=== PATIENT | female | born 1950 | race Caucasian/White ===

== ENCOUNTER → 2020-05-28 | Outpatient (CLI) | payer MEDICARE | LOC: GMAM 16:51 | PROVIDERS: ATTEND Family Medicine | DX: Z13.29 Encounter for screening for other suspected endocrine disorder (principal) ==

== ENCOUNTER → 2020-05-30 | Outpatient (CLI) | payer MEDICARE | LOC: GMAM 14:12 | PROVIDERS: ATTEND Family Medicine | DX: E83.52 Hypercalcemia (principal); E03.9 Hypothyroidism, unspecified ==

== ENCOUNTER → 2020-06-28 | Outpatient (CLI) | payer MEDICARE, OTHER ==
--- NOTE | 2020-06-28 16:34 | US ---
US HEAD NECK SOFT TISSUE CLINICAL STATEMENT:69 years Female thyroid/parathyroid/oaritid-nontoxic single thyroid nodule. COMPARISON: None TECHNIQUE: Transcutaneous scanning, grayscale and Doppler modes. FINDINGS: Size right thyroid lobe: 3.8 x 1.4 x 1.3 cm Size left thyroid lobe: 4.0 x 1.5 x 1.1 cm Size isthmus: 0.25 cm Estimated total number of nodules greater than or equal to 1 cm: 2. Nodule 1: Size: 1.0 x 1.0 x 0.8 cm Location: Right Lower Composition: solid or almost completely solid: 2 points Echogenicity: hypoechoic: 2 points Shape: wider than tall: 0 points Margins: ill-defined: 0 points Echogenic foci: None. ACR Total Points: 4; ACR TI-RADS risk category: TR4 - moderately suspicious nodule. Nodule 2: Size: 1.2 x 1.0 x 0.8 cm Location: Left Lower Composition: solid or almost completely solid: 2 points Echogenicity: hypoechoic: 2 points Shape: wider than tall: 0 points Margins: smooth: 0 points Echogenic foci: none: 0 points ACR Total Points: 4; ACR TI-RADS risk category: TR4 - moderately suspicious nodule. No dominant solid mass, no fluid collection, no distinct cyst, and no large calcifications in the surrounding soft tissues. IMPRESSION: 1. Nodule 1: ACR TI-RADS 2017 Category TR4. Recommend: Follow-up ultrasound in 1 year.. Recommendations based upon [facility] Best Practice recommendations and ACR TI-RADS 2017 guidelines. Please see below*. 2. Nodule 2: ACR TI-RADS 2017 Category TR4. Recommend: Follow-up ultrasound in 1 year. 3. Soft tissue around the thyroid gland is unremarkable. This examination is not sensitive for parathyroid masses or abnormal functioning parathyroid nodules. *ACR TI-RADS 2017 Recommendations for imaging follow-up of nodules (baseline study): TR1: No FNA or follow up TR2: No FNA or follow up TR3: FNA if >/= 2.5 cm, follow up if 1.5 - 2.4 cm in 1, 3, and 5 years TR4: FNA if >/= 1.5 cm, follow up if 1.0 - 1.4 cm in 1, 2, 3, and 5 years TR5: FNA if >/= 1.0 cm, follow up if 0.5 - 0.9 cm every year for 5 years ACR TI-RADS recommends that no more than two nodules with the highest ACR TI-RADS total point should be biopsied and no more than four nodules should be followed. These recommendations do not apply to patients with increased risk for thyroid cancer or patients with symptomatic thyroid disease. Electronically signed by: Long Lucas MD 06/28/2020 4:32 PM [facility]
== END ==
LOC: US 09:34
PROVIDERS: ATTEND Family Medicine
DX: E04.1 Nontoxic single thyroid nodule (principal)

== ENCOUNTER → 2020-08-22 | Outpatient (CLI) | payer OTHER ==
--- NOTE | 2020-08-22 14:14 | CT ---
EXAM DESCRIPTION: CT ABDOMEN AND PELVIS WITH CONTRAST CLINICAL HISTORY: Asymptomatic microscopic hematuria COMPARISON: None Available. TECHNIQUE: CT of the abdomen and pelvis are performed after IV contrast administration. No oral contrast was given. Multiplanar reconstructions were obtained. FINDINGS: The lung bases are unremarkable. The liver is normal in contour and contour. Subcentimeter scattered hepatic hypodensities are too small to further characterize but statistically represent hepatic cysts. The gallbladder is unremarkable without calcified gallstone. No biliary ductal dilatation. The spleen is normal in size. The pancreas and adrenals enhance normally. The kidneys are normal in size, contour, and enhancement. Tiny 3 mm cyst along the inferior pole of the right kidney. No hydronephrosis or nephrolithiasis. No renal mass or perinephric fluid collection. Mild to moderate sigmoid diverticulosis, few scattered diverticula the right hepatic flexure, without acute diverticulitis. No focal bowel wall thickening or bowel obstruction. The appendix is normal. No anterior abdominal wall hernia. There is mild haziness to the mesenteric root fat within the left central abdomen, nonspecific, but can be seen with a mild mesenteric panniculitis. There is no morphologically suspicious lymphadenopathy or free fluid observed. No free air. Two foci of punctate gas is present within the bladder. No focal bladder wall thickening. The reproductive organs are unremarkable. Chronic L5 bilateral spondylolysis with grade 1 anterolisthesis of L5 on S1. No acute osseous abnormality. IMPRESSION: 1. Normal kidneys. No renal mass, nephrolithiasis, or hydronephrosis. 2. Trace foci of gas within the bladder, nonspecific, for correlation with recent catheterization or mild cystitis. 3. Mild haziness to the mesenteric fat can be seen with mild mesenteric panniculitis. 4. Colonic diverticulosis. This exam was performed according to our departmental dose-optimization program, which includes automated exposure control, adjustment of the mA and/or kV according to patient size and/or use of iterative reconstruction technique. Electronically signed by: Kelby Mora DO 08/22/2020 2:12 PM [facility]
== END ==
LOC: CT 08:49
PROVIDERS: ATTEND Family Medicine
DX: R31.21 Asymptomatic microscopic hematuria (principal); K57.30 Diverticulosis of large intestine without perforation or abscess without bleeding